=== PATIENT | female | born 1980 | race African-American/Black ===

== ENCOUNTER 2018-02-04 08:53 | Emergency (ER) | payer BC, OTHER ==
[~2018-02-04] VITALS: Ht 180.3 cm; Wt 95.3 kg
[~2018-02-04 08:53] MED LIST: IRON159 MG; PENICILLIN VK500 M1 PO; TRI-SPRINTEC1 EACH PO; VICOPROFEN 2001 EACH PO
[2018-02-04] MEDS ORDERED: HYDROCODONE-AP1 EAC6 PO (09:18)
[2018-02-04] MEDS ORDERED: CLEOCIN HCL150 MG PO (09:18)
[2018-02-04] MEDS ORDERED: IBUPROFEN 800800 M1 PO (09:18)
[2018-07-10] MEDS ORDERED: TESSALON PERLE100 M1 PO (01:19)
[2018-07-10] MEDS ORDERED: VENTOLIN HFA 1818 GM INH (01:50)
== END 2018-02-04 11:00 | disposition home or self-care (01) ==
LOC: ER 08:53
DX: K04.7 Periapical abscess without sinus (principal); G43.909 Migraine, unspecified, not intractable, without status migrainosus; Z90.710 Acquired absence of both cervix and uterus

== ENCOUNTER 2019-11-21 10:38 | Emergency (ER) | payer BC, OTHER ==
[~2019-11-21] VITALS: Ht 180.3 cm; Wt 99.8 kg
[2019-11-21 10:38] VITALS: BP 138/71
[~2019-11-21 10:38] MED LIST changes: +CLEOCIN HCL150 MG PO; +HYDROCODONE-AP1 EAC6 PO; +IBUPROFEN 800800 M1 PO; +TESSALON PERLE100 M1 PO; +VENTOLIN HFA 1818 GM INH
[2019-11-21] MEDS ORDERED: NAPROSYN500 MG PO (11:33)
== END 2019-11-21 11:40 | disposition home or self-care (01) ==
LOC: ER 10:38
DX: S80.01XA Contusion of right knee, initial encounter (principal); S80.02XA Contusion of left knee, initial encounter; G43.909 Migraine, unspecified, not intractable, without status migrainosus; Z90.710 Acquired absence of both cervix and uterus; V89.2XXA Person injured in unspecified motor-vehicle accident, traffic, initial encounter; Y92.89 Other specified places as the place of occurrence of the external cause; Y93.89 Activity, other specified; Y99.8 Other external cause status